=== PATIENT | male | born 1955 | race Hispanic/Latino ===

== ENCOUNTER 2020-04-22 11:07 | Inpatient (IN) | payer OTHER ==
[~2020-04-22] VITALS: Ht 172.7 cm; Wt 79.8 kg
[2020-04-22] MEDS ORDERED: ONDANSETRON HCL 4 MG/2 ML VIAL ONE (11:47)
[2020-04-22] MEDS ORDERED: MORPHINE SULFATE 4 MG/1ML SYG ONE (11:47)
[2020-04-22 12:15] LABS: BASOPHILS % (AUTO) 0.2 % (0.0-5.0); EOSINOPHILS % (AUTO) 1.1 % (0.0-8.0); HEMATOCRIT 44.6 % (42-54); LYMPHOCYTES % (AUTO) 34.1 % (21.0-51.0); MEAN CORPUSCULAR HEMOGLOBIN 31.8 pg (27.0-33.0); MONOCYTES % (AUTO) 8.2 % (3.0-13.0); NEUTROPHILS % (AUTO) 56.2 % (40.0-77.0); PLATELET COUNT (AUTO) 162 K/uL (130-400); RED CELL DISTRIBUTION WIDTH 11.7 % (11.0-15.5); WHITE BLOOD COUNT (AUTO) 5.3 K/uL (4.8-10.8)
[2020-04-22 12:36] LABS: ALBUMIN 3.2 g/dL (3.5-5.0); BILIRUBIN,TOTAL 0.9 mg/dL (0.2-1.0); CREATININE 0.8 mg/dL (0.5-1.5); TOTAL PROTEIN, SERUM 7.8 g/dL (6.0-8.3)
[2020-04-22 14:53] LABS: APPEARANCE,URINE Clear (CLEAR); BILIRUBIN,URINE Negative (NEGATIVE); COLOR,URINE Yellow (YELLOW); GLUCOSE, URINE (UA) Negative (NEGATIVE); KETONES,URINE Negative (NEGATIVE); LEUKOCYTE ESTERASE ,URINE Negative (NEGATIVE); NITRATE,URINE Negative (NEGATIVE); OCCULT BLOOD,URINE Negative (NEGATIVE); PROTEIN,URINE Trace mg/dL (NEGATIVE)
[2020-04-22] MEDS ORDERED: DEXAMETHASONE SOD PHOSPHATE 10MG/ML 1ML VIAL ONE (15:02)
[2020-04-22] MEDS ORDERED: AZITHROMYCIN 500MG+NS 250ML 250 ML IV ONE (15:03)
[2020-04-22] MEDS ORDERED: CEFTRIAXONE SODIUM 1 GM ONE (15:03)
[2020-04-22 15:18] LABS: BACTERIA,URINE Rare /HPF (None Seen); RBC,URINE 0-1 /HPF (0-1); SQUAMOUS EPITHELIAL CELL,UR Rare /HPF (0-2); WBC,URINE 0-1 /HPF (0-1)
[2020-04-22 15:38] LABS: ABG BASE EXCESS 1.1 mmol/L (-2.0-3.0); ABG HCO3 26.2 mmol/L (21.0-28.0); ABG OXYGEN SATURATION 89.9 % (95.0-99.0); ABG PCO2 43 mmHg (35-48)
[2020-04-22] MEDS ORDERED: ACETAMINOPHEN EXTRA STRENGTH 500 MG TABLET ONE (16:04)
[2020-04-22] MEDS: CEFTRIAXONE SODIUM 1 GM IV SCH (17:45)
[2020-04-22] MEDS: DOXYCYCLINE 100MG+NS 250ML 250 ML IV SCH (17:45)
[2020-04-22] MEDS ORDERED: ALBUTEROL SULFATE 0.083% 2.5 MG/3 ML INH IH PRN (17:45)
[2020-04-22] MEDS: AZITHROMYCIN 500MG+NS 250ML 250 ML IV SCH (17:45)
[2020-04-22] MEDS: FAMOTIDINE 20MG TAB 20 MG TAB PO SCH (21:00)
[2020-04-22] MEDS: METHYLPREDNISOLONE SOD SUCC 40MG/ML 1ML IVP SCH (21:00)
[2020-04-22] MEDS ORDERED: METHYLPREDNISOLONE SOD SUCC 40MG/ML 1ML ONE (23:15)
[2020-04-22] MEDS ORDERED: ENOXAPARIN SODIUM 40 MG/0.4 ML SYRINGE SQ ONE (23:15)
[2020-04-22] MEDS ORDERED: DOXYCYCLINE 100MG+NS 250ML 250 ML IV ONE (23:15)
[2020-04-22] MEDS ORDERED: FAMOTIDINE/PF 20 MG/2 ML VIAL IV ONE (23:16)
[2020-04-23] MEDS: DOXYCYCLINE 100MG+NS 250ML 250 ML IV SCH ×2 (05:45→17:45)
[2020-04-23 08:36] LABS: ALANINE AMINOTRANSFERASE 48 U/L (12-78); ALBUMIN 2.7 g/dL (3.5-5.0); ASPARTATE AMINOTRANSFERASE 36 U/L (10-37); BILIRUBIN,TOTAL 1.6 mg/dL (0.2-1.0); CARBON DIOXIDE 19 mmol/L (21-32); CHLORIDE 106 mmol/L (101-111); GLOMERULAR FILTR. RATE CALC 80 mL/min (>60); GLUCOSE,RANDOM 112 mg/dL (70-105); SODIUM SERUM 136 mmol/L (136-145); TOTAL PROTEIN, SERUM 5.7 g/dL (6.0-8.3); UREA NITROGEN, BLOOD 22 mg/dL (7-18)
[2020-04-23] MEDS: ENOXAPARIN SODIUM 40 MG/0.4 ML SYRINGE SQ SCH (09:00)
[2020-04-23] MEDS: FAMOTIDINE 20MG TAB 20 MG TAB PO SCH ×2 (09:00→21:00)
[2020-04-23] MEDS: METHYLPREDNISOLONE SOD SUCC 40MG/ML 1ML IVP SCH ×3 (09:00→21:00)
[2020-04-23 09:13] LABS: HEMATOCRIT 43.2 % (42-54); LYMPHOCYTES % (AUTO) 27.7 % (21.0-51.0); MEAN CORPUSCULAR HEMOGLOBIN 31.9 pg (27.0-33.0); MEAN CORPUSCULAR HGB CONC 34.7 g/dL (32.0-36.0); MEAN CORPUSCULAR VOLUME 91.9 fL (79-99); MONOCYTES % (AUTO) 5.7 % (3.0-13.0); NEUTROPHILS % (AUTO) 66.3 % (40.0-77.0); PLATELET COUNT (AUTO) 169 K/uL (130-400); RED CELL DISTRIBUTION WIDTH 11.6 % (11.0-15.5); WHITE BLOOD COUNT (AUTO) 3.7 K/uL (4.8-10.8)
[2020-04-23] MEDS ORDERED: ENOXAPARIN SODIUM 100 MG/1 ML SQ ONE (11:38)
[2020-04-23] MEDS ORDERED: ASPIRIN 325 MG TABLET ONE (11:39)
[2020-04-23] MEDS ORDERED: ZINC SULFATE 220 CAPSULE ONE (11:39)
[2020-04-23] MEDS ORDERED: ASCORBIC ACID 500 MG TAB ONE (11:39)
[2020-04-23] MEDS ORDERED: METHYLPREDNISOLONE SOD SUCC 40MG/ML 1ML ONE ×3 (11:39→21:31)
[2020-04-23] MEDS ORDERED: CEFTRIAXONE SODIUM 1 GM ONE ×2 (11:40→16:11)
[2020-04-23] MEDS ORDERED: FAMOTIDINE/PF 20 MG/2 ML VIAL IV ONE (11:40)
[2020-04-23] MEDS ORDERED: INSULIN HUMULIN R 100 UNIT/ML 3ML ONE ×2 (11:41→18:57)
--- NOTE | 2020-04-23 13:52 | NUR ---
CHART CHECK COMPLETED. Pt IS A 64 YEAR OLD MALE ADMITTED SECONDARY TO COVID-PNEUMONIA, ABDOMINAL PAIN, HYPOXEMIA. Pt DENIES SIGNIFICANT PAST MEDICAL HISTORY. Pt CURRENTLY ON REGULAR TEXTURE, THIN LIQUID DIET. SKILLED SPEECH/SWALLOW THERAPY IS NOT WARRANTED AT THIS TIME. Addendum: 04/23/20 at 1408 by AUGIE LIZ, [facility] Amended: Links added.
--- NOTE | 2020-04-23 14:03 | NUR ---
CALL TO PATIENT, NO ANSWER, CALL TO SPOUSE, [employer], [facility] HAS DROPPED OFF LABELLED DISTRICT ATTORNEY/PHONE TO SECURITY LAST NIGHT. [facility] PATIENT LIVES WITH SPOUSE AND SON, [facility]SE WILL PROVIDE TRANSPORT AT DISCHARGE. [facility] PATIENT IS ACTIVE, INDEPENDENT, EMPLOYED, DRIVES, NO DME OR HOME SERVICES DENIES SICK CONTACTS I THE HOME DCP IS HOME, CM TO FOLLOW Addendum: 04/23/20 at 1406 by ADDISON NELSON RN CM Amended: Links added.
[2020-04-23] MEDS ORDERED: FAMOTIDINE 20MG TAB 20 MG TAB ONE (16:10)
[2020-04-23] MEDS ORDERED: AZITHROMYCIN 500MG+NS 250ML 250 ML IV ONE (16:11)
[2020-04-23] MEDS: AZITHROMYCIN 500MG+NS 250ML 250 ML IV SCH (17:45)
[2020-04-23] MEDS: CEFTRIAXONE SODIUM 1 GM IV SCH (17:45)
[2020-04-23] MEDS ORDERED: DOXYCYCLINE 100MG+NS 250ML 250 ML IV ONE (21:31)
[2020-04-24] VITALS: BP 125/88
[2020-04-24 03:20] VITALS: BP 126/76
--- NOTE | 2020-04-24 03:21 | NUR ---
FULL REPORT GIVEN TO FLOOR NURSE PT DENIES SOB.DENIES CHEST PAIN
--- NOTE | 2020-04-24 05:21 | NUR ---
Pt presented A&Ox4 and is cooperative and pleasant to talk to; pts mood is appropriate; pt stated he had BM two days ago; pt oriented to room, bed, call toribio; pt verbalized understanding; pt provided water as requested; pt denies any requests and/or complaints at this time; pts respirations are even and unlabored ; pt O2 sats remain at 93% on RA; no distress noted; will continue to monitor throughout remainder of shift Addendum: 04/24/20 at 4110 by Arsenio Garnica RN RN Amended: Links added.
[2020-04-24 08:03] LABS: ALANINE AMINOTRANSFERASE 45 U/L (12-78); ALBUMIN 2.8 g/dL (3.5-5.0); ASPARTATE AMINOTRANSFERASE 35 U/L (10-37); BILIRUBIN,TOTAL 0.6 mg/dL (0.2-1.0); CARBON DIOXIDE 30 mmol/L (21-32); CHLORIDE 101 mmol/L (101-111); GLOMERULAR FILTR. RATE CALC 80 mL/min (>60); GLUCOSE,RANDOM 239 mg/dL (70-105); POTASSIUM 3.9 mmol/L (3.5-5.1); SODIUM SERUM 139 mmol/L (136-145); TOTAL PROTEIN, SERUM 7.1 g/dL (6.0-8.3); UREA NITROGEN, BLOOD 13 mg/dL (7-18)
[2020-04-24] MEDS ORDERED: ACETAMINOPHEN 325 MG TAB PO PRN (08:30)
[2020-04-24] MEDS: METHYLPREDNISOLONE SOD SUCC 40MG/ML 1ML IVP SCH ×3 (08:42→21:58)
[2020-04-24] MEDS: ENOXAPARIN SODIUM 40 MG/0.4 ML SYRINGE SQ SCH ×2 (08:44→21:59)
[2020-04-24 08:54] VITALS: BP 102/48
[2020-04-24] MEDS ORDERED: GLUCAGON 1MG KIT 1 MG ML IM PRN (09:45)
[2020-04-24] MEDS ORDERED: DEXTROSE 50%-WATER 50 ML DISP.SYRIN IV PRN (09:45)
[2020-04-24 10:08] LABS: HEMOGLOBIN A1C 8.2 % (4.0-6.0)
[2020-04-24] MEDS: DOXYCYCLINE 100MG+NS 250ML 250 ML IV SCH ×2 (10:49→21:58)
[2020-04-24] MEDS: POLYETHYLENE GLYCOL 3350 17 GM POWD.PACK PO SCH (10:50)
[2020-04-24] MEDS: FAMOTIDINE/PF 20 MG/2 ML VIAL IV SCH ×2 (10:50→21:58)
[2020-04-24] MEDS: INSULIN HUMULIN R 100 UNIT/ML 3ML SQ SCH ×3 (10:53→22:02)
--- NOTE | 2020-04-24 11:00 | NUR ---
PHYSICIAN ROUNDS DR WILLIAM THOMAS ROUNDED ON PATIENT , PER HIS SERVICE NO PLASMA NEEDED , PATIENT ON ROOM AIR AND O2 SATS 93-95%. POSSIBLE DISCHARGE TOMORROW.
[2020-04-24 11:10] VITALS: BP 151/67
--- NOTE | 2020-04-24 12:00 | NUR ---
PHYSICIAN ROUNDS DR SHASTA VEGAS ROUNDED ON PATIENT , PATIENT ON ROOM AIR WITH O2 SATS 93-95%, NO NEW ORDERS RECEIVED WILL SING -OFF PATIENT PER HIS SERVICE
[2020-04-24 16:40] VITALS: BP 94/58
[2020-04-24] MEDS: AZITHROMYCIN 500MG+NS 250ML 250 ML IV SCH (16:42)
[2020-04-24] MEDS: CEFTRIAXONE SODIUM 1 GM IV SCH (16:43)
[2020-04-24 21:18] VITALS: BP 112/57
[2020-04-24] MEDS: INSULIN GLARGINE 100 UNITS/ML 10 ML VIAL SQ SCH (22:01)
[2020-04-25 00:21] VITALS: BP 123/67
[2020-04-25 03:27] VITALS: BP 123/61
[2020-04-25] MEDS: INSULIN HUMULIN R 100 UNIT/ML 3ML SQ SCH ×7 (06:30→22:50)
[2020-04-25] MEDS: INSULIN GLARGINE 100 UNITS/ML 10 ML VIAL SQ SCH ×2 (06:30→22:50)
[2020-04-25 06:39] LABS: BASOPHILS % (AUTO) 0.1 % (0.0-5.0); HEMATOCRIT 41.4 % (42-54); LYMPHOCYTES % (AUTO) 7.7 % (21.0-51.0); MEAN CORPUSCULAR HEMOGLOBIN 31.5 pg (27.0-33.0); MEAN CORPUSCULAR HGB CONC 34.3 g/dL (32.0-36.0); MEAN CORPUSCULAR VOLUME 91.8 fL (79-99); MONOCYTES % (AUTO) 4.1 % (3.0-13.0); NEUTROPHILS % (AUTO) 87.7 % (40.0-77.0); PLATELET COUNT (AUTO) 223 K/uL (130-400); RED BLOOD CELL COUNT(AUTO) 4.51 MIL/uL (4.50-6.20); RED CELL DISTRIBUTION WIDTH 11.6 % (11.0-15.5); WHITE BLOOD COUNT (AUTO) 13.6 K/uL (4.8-10.8)
[2020-04-25 06:56] LABS: ALANINE AMINOTRANSFERASE 41 U/L (12-78); ALBUMIN 2.5 g/dL (3.5-5.0); ASPARTATE AMINOTRANSFERASE 22 U/L (10-37); BILIRUBIN,TOTAL 0.6 mg/dL (0.2-1.0); CARBON DIOXIDE 29 mmol/L (21-32); CHLORIDE 101 mmol/L (101-111); CREATININE 0.9 mg/dL (0.5-1.5); GLOMERULAR FILTR. RATE CALC 90 mL/min (>60); GLUCOSE,RANDOM 210 mg/dL (70-105); POTASSIUM 4.5 mmol/L (3.5-5.1); SODIUM SERUM 137 mmol/L (136-145); TOTAL PROTEIN, SERUM 6.8 g/dL (6.0-8.3); UREA NITROGEN, BLOOD 11 mg/dL (7-18)
[2020-04-25 08:43] VITALS: BP 137/70
[2020-04-25] MEDS: FAMOTIDINE/PF 20 MG/2 ML VIAL IV SCH ×2 (09:44→22:49)
[2020-04-25] MEDS: POLYETHYLENE GLYCOL 3350 17 GM POWD.PACK PO SCH (09:44)
[2020-04-25] MEDS: DOXYCYCLINE 100MG+NS 250ML 250 ML IV SCH (09:44)
[2020-04-25] MEDS: ENOXAPARIN SODIUM 40 MG/0.4 ML SYRINGE SQ SCH ×2 (09:44→22:49)
[2020-04-25] MEDS: METHYLPREDNISOLONE SOD SUCC 40MG/ML 1ML IVP SCH ×3 (09:44→22:49)
[2020-04-25 11:12] VITALS: BP 124/69
[2020-04-25 16:57] VITALS: BP 103/62
[2020-04-25] MEDS: CEFTRIAXONE SODIUM 1 GM IV SCH (17:21)
[2020-04-25] MEDS: AZITHROMYCIN 500MG+NS 250ML 250 ML IV SCH (17:21)
[2020-04-25 19:30] VITALS: BP 136/75
[2020-04-26] VITALS: BP 142/75
[2020-04-26 04:00] VITALS: BP 130/62
[2020-04-26] MEDS: INSULIN HUMULIN R 100 UNIT/ML 3ML SQ SCH ×7 (06:35→21:00)
[2020-04-26] MEDS: INSULIN GLARGINE 100 UNITS/ML 10 ML VIAL SQ SCH ×2 (06:40→21:00)
[2020-04-26 08:00] VITALS: BP 123/67
[2020-04-26] MEDS: FAMOTIDINE/PF 20 MG/2 ML VIAL IV SCH ×2 (09:33→21:59)
[2020-04-26] MEDS: POLYETHYLENE GLYCOL 3350 17 GM POWD.PACK PO SCH (09:33)
[2020-04-26] MEDS: METHYLPREDNISOLONE SOD SUCC 40MG/ML 1ML IVP SCH ×3 (09:33→21:59)
[2020-04-26] MEDS: ENOXAPARIN SODIUM 40 MG/0.4 ML SYRINGE SQ SCH ×2 (09:34→22:00)
[2020-04-26 11:00] VITALS: BP 122/71
--- NOTE | 2020-04-26 14:52 | NUR ---
PT OFF THE O2 VIA NG AT 2.5 LITER . FOR WEANING DOWN . AND WILL CHECK HIS O2 SAT IN 30 MIN... PER DR. SUSI IRVIN PLAN OF CARE. POSSIBLE DISCHARGE . IF PT TOLERATE WEANING OFF THE OXYGEN .
[2020-04-26 16:00] VITALS: BP 135/74
--- NOTE | 2020-04-26 16:20 | NUR ---
RECHECK O2 AT ROOM AIR. PT . SAT WERE MONITOR .AT 86% . TOOK PT SOME DEEP BREATH . TO BRING HIS O2 SAT UP TO 91% . PLACED ON 1 LITER NC
[2020-04-26] MEDS: AZITHROMYCIN 500MG+NS 250ML 250 ML IV SCH (16:56)
[2020-04-26] MEDS: CEFTRIAXONE SODIUM 1 GM IV SCH (16:56)
[2020-04-26] MEDS: METFORMIN HCL 500 MG TABLET PO SCH (17:43)
[2020-04-26] MEDS ORDERED: AZITHROMYCIN 500MG+NS 250ML 250 ML IV SCH (21:00)
[2020-04-26 22:23] VITALS: BP 160/92
[2020-04-27 00:05] VITALS: BP 159/87
[2020-04-27 05:59] VITALS: BP 150/80
[2020-04-27] MEDS: INSULIN HUMULIN R 100 UNIT/ML 3ML SQ SCH ×7 (06:28→21:00)
[2020-04-27] MEDS: INSULIN GLARGINE 100 UNITS/ML 10 ML VIAL SQ SCH ×2 (06:29→21:00)
[2020-04-27 08:35] VITALS: BP 129/73
[2020-04-27] MEDS: METHYLPREDNISOLONE SOD SUCC 40MG/ML 1ML IVP SCH ×3 (09:00→21:00)
[2020-04-27] MEDS: FAMOTIDINE/PF 20 MG/2 ML VIAL IV SCH ×2 (09:00→21:00)
[2020-04-27] MEDS: ENOXAPARIN SODIUM 40 MG/0.4 ML SYRINGE SQ SCH ×2 (09:01→21:00)
[2020-04-27] MEDS: METFORMIN HCL 500 MG TABLET PO SCH ×3 (09:01→18:04)
[2020-04-27] MEDS: POLYETHYLENE GLYCOL 3350 17 GM POWD.PACK PO SCH (09:01)
[2020-04-27 12:01] VITALS: BP 144/94
[2020-04-27 16:55] VITALS: BP 155/79
[2020-04-27] MEDS: AZITHROMYCIN 500MG+NS 250ML 250 ML IV SCH (18:04)
[2020-04-27] MEDS: CEFTRIAXONE SODIUM 1 GM IV SCH (18:05)
[2020-04-27] MEDS: GLIPIZIDE 5 MG TABLET PO SCH (18:08)
[2020-04-27 20:54] VITALS: BP 163/91
[2020-04-28 01:52] VITALS: BP 148/81
[2020-04-28 05:00] VITALS: BP 141/90
[2020-04-28] MEDS: INSULIN HUMULIN R 100 UNIT/ML 3ML SQ SCH ×7 (06:06→22:04)
[2020-04-28] MEDS: INSULIN GLARGINE 100 UNITS/ML 10 ML VIAL SQ SCH ×2 (06:37→22:04)
[2020-04-28] MEDS: GLIPIZIDE 5 MG TABLET PO SCH (06:38)
--- NOTE | 2020-04-28 08:00 | NUR ---
PT AAO X 3 REVIEW PLAN OFCARE, PT WAS PLACED BACK ON THE O2 VIA NC DUETO A DROP OF O2 SAT DOWN TO 86% 88% . WILL CONT TO MONITOR HIS O2 SAT . ON 2 LITER NC. DENIES ANY SOB ONLY IF HE STARTS TO WALK FAST OR FOR A LONG TIME. REVIEW CALL LIGHT AND FALL RISK ,
[2020-04-28] MEDS: METFORMIN HCL 500 MG TABLET PO SCH ×3 (08:19→16:51)
[2020-04-28] MEDS: FAMOTIDINE/PF 20 MG/2 ML VIAL IV SCH ×2 (08:20→21:59)
[2020-04-28] MEDS: ENOXAPARIN SODIUM 40 MG/0.4 ML SYRINGE SQ SCH ×2 (08:21→22:05)
[2020-04-28] MEDS: METHYLPREDNISOLONE SOD SUCC 40MG/ML 1ML IVP SCH ×3 (08:22→21:59)
[2020-04-28] MEDS: POLYETHYLENE GLYCOL 3350 17 GM POWD.PACK PO SCH (08:23)
[2020-04-28 09:43] VITALS: BP 114/67
[2020-04-28 09:46] LABS: BASOPHILS % (AUTO) 0.1 % (0.0-5.0); LYMPHOCYTES % (AUTO) 10.7 % (21.0-51.0); MEAN CORPUSCULAR HEMOGLOBIN 31.4 pg (27.0-33.0); MEAN CORPUSCULAR HGB CONC 34.5 g/dL (32.0-36.0); MEAN CORPUSCULAR VOLUME 90.9 fL (79-99); MONOCYTES % (AUTO) 5.6 % (3.0-13.0); NEUTROPHILS % (AUTO) 82.4 % (40.0-77.0); PLATELET COUNT (AUTO) 286 K/uL (130-400); RED BLOOD CELL COUNT(AUTO) 4.62 MIL/uL (4.50-6.20); RED CELL DISTRIBUTION WIDTH 11.3 % (11.0-15.5)
[2020-04-28 10:04] LABS: ALANINE AMINOTRANSFERASE 44 U/L (12-78); ALBUMIN 2.4 g/dL (3.5-5.0); ASPARTATE AMINOTRANSFERASE 21 U/L (10-37); BILIRUBIN,TOTAL 0.6 mg/dL (0.2-1.0); CARBON DIOXIDE 30 mmol/L (21-32); CHLORIDE 99 mmol/L (101-111); CREATININE 0.9 mg/dL (0.5-1.5); GLOMERULAR FILTR. RATE CALC 90 mL/min (>60); GLUCOSE,RANDOM 302 mg/dL (70-105); LACTATE DEHYDROGENASE 256 U/L (81-234); POTASSIUM 3.9 mmol/L (3.5-5.1); SODIUM SERUM 135 mmol/L (136-145); TOTAL PROTEIN, SERUM 6.2 g/dL (6.0-8.3); UREA NITROGEN, BLOOD 18 mg/dL (7-18)
[2020-04-28 12:23] VITALS: BP 123/81
[2020-04-28] MEDS ORDERED: ALBUTEROL INHALER 90MCG/INH IH PRN (13:30)
--- NOTE | 2020-04-28 15:00 | NUR ---
Family notification Spoke to Manuela Azar and gave her an update regarding patient's condition. All questions were answered and concerns addressed. Mrs. Azar was very appreciative of call
--- NOTE | 2020-04-28 15:06 | NUR ---
RESP STAFF WITH PT. . TO SEE PT O2 SAT AFTER GETTING UP AND WALKING FOR EVAL FOR OXYGEN
--- NOTE | 2020-04-28 15:30 | NUR ---
PER RESULTS FROM THE AMBULATORY ON ROOM AIR, PT OXYGEN LEVEL DOWN TO 88% AND PLACED BACK ON 2 LITER NC. WILL DIRECT RESULTS TO CASE MANGEMENT STAFF FOR DIRECTIONS OF CONT . DISCHARGE PLANNING CARE.
--- NOTE | 2020-04-28 15:59 | NUR ---
Family notification Addendum from 04/27/2020; Spoke to Manuela Azar to give her an update on pt's condition. All questions were answered and concerns addressed. Verbalized understanding and was very appreciative of call
[2020-04-28] MEDS: CEFTRIAXONE SODIUM 1 GM IV SCH (16:03)
[2020-04-28] MEDS: AZITHROMYCIN 500MG+NS 250ML 250 ML IV SCH (16:51)
[2020-04-28 17:39] VITALS: BP_SYST 123; BP_SYST 141; BP_DIAS 76; BP_DIAS 87
[2020-04-28 23:01] VITALS: BP 150/91
[2020-04-29 01:05] VITALS: BP 123/80
[2020-04-29] MEDS: INSULIN HUMULIN R 100 UNIT/ML 3ML SQ SCH ×7 (05:33→21:47)
[2020-04-29 05:54] VITALS: BP 156/96
[2020-04-29] MEDS: GLIPIZIDE 5 MG TABLET PO SCH (06:09)
[2020-04-29] MEDS: INSULIN GLARGINE 100 UNITS/ML 10 ML VIAL SQ SCH ×2 (06:11→21:48)
[2020-04-29 07:19] LABS: BASOPHILS % (AUTO) 0.1 % (0.0-5.0); HEMATOCRIT 44.1 % (42-54); LYMPHOCYTES % (AUTO) 15.7 % (21.0-51.0); MEAN CORPUSCULAR HEMOGLOBIN 31.5 pg (27.0-33.0); MEAN CORPUSCULAR HGB CONC 34.7 g/dL (32.0-36.0); MEAN CORPUSCULAR VOLUME 90.7 fL (79-99); NEUTROPHILS % (AUTO) 75.6 % (40.0-77.0); PLATELET COUNT (AUTO) 332 K/uL (130-400); RED BLOOD CELL COUNT(AUTO) 4.86 MIL/uL (4.50-6.20); RED CELL DISTRIBUTION WIDTH 11.4 % (11.0-15.5); WHITE BLOOD COUNT (AUTO) 7.6 K/uL (4.8-10.8)
[2020-04-29 08:00] VITALS: BP 99/59
[2020-04-29 08:01] LABS: CREATININE 0.8 mg/dL (0.5-1.5); CRP QUANTITATIVE 20.2 mg/L (0.00-9.0); POTASSIUM 4.4 mmol/L (3.5-5.1)
[2020-04-29] MEDS: METFORMIN HCL 500 MG TABLET PO SCH ×3 (09:40→18:26)
[2020-04-29] MEDS: METHYLPREDNISOLONE SOD SUCC 40MG/ML 1ML IVP SCH ×2 (09:40→13:40)
[2020-04-29] MEDS: FAMOTIDINE/PF 20 MG/2 ML VIAL IV SCH ×2 (09:40→21:42)
[2020-04-29] MEDS: POLYETHYLENE GLYCOL 3350 17 GM POWD.PACK PO SCH (09:40)
[2020-04-29] MEDS: ENOXAPARIN SODIUM 40 MG/0.4 ML SYRINGE SQ SCH ×2 (09:41→21:42)
[2020-04-29 12:00] VITALS: BP 111/69
--- NOTE | 2020-04-29 13:52 | NUR ---
RDSCREEN - LOS X 7 Pt with positive COVID-19. Tolerated Heart Healthy Diet order with no report of GI distress, PO intake at 100%. Obesity Class III (BMI 42.4). Miralax in place. Recommend 60mL ProMod QD RD to continue to monitor. Please notify as additional nutrition concerns arise. Thank you.
[2020-04-29 16:00] VITALS: BP 125/72
--- NOTE | 2020-04-29 16:06 | NUR ---
CM NOTE/[facility] CALLED [facility], STATES THEY HAVE OXYGEN BUT HAVE A WAITING LIST. PREVIOUSLY ALL OTHER DME COMPANIES IN NETWORK DO NOT HAVE OXYGEN. CLINICAL REFERRAL PACKET FAXED TO [facility]. CM TO FOLLOW UP ACCORDINGLY. DR. FAJARDO AWARE OF POSSIBLE DELAY IN HOME OXYGEN DUE TO HIGH DEMAND AND WAITING LIST. PATIENT IS TO BE WEANED OFF OXYGEN IN THE MEAN TIME.
[2020-04-29] MEDS: AZITHROMYCIN 500MG+NS 250ML 250 ML IV SCH (18:26)
[2020-04-29] MEDS: CEFTRIAXONE SODIUM 1 GM IV SCH (18:26)
[2020-04-29] MEDS: DEXAMETHASONE 4 MG TAB PO SCH (21:42)
[2020-04-29 21:54] VITALS: BP 108/75
[2020-04-30 02:02] VITALS: BP 139/83
--- NOTE | 2020-04-30 02:33 | NUR ---
pt maintained 94% O2 sats on room air. REJI West Addendum: 04/30/20 at 0308 by Arsenio Garnica RN RN pts O2 sats dropped to 88% at this time while asleep; pt was awakened and instructed to take deep slow breaths and O2 sats increased to 90% pt placed on 1L O2 via nasal cannula at this time. RE[facility]
[2020-04-30 06:04] LABS: BASOPHILS % (AUTO) 0.3 % (0.0-5.0); HEMATOCRIT 43.3 % (42-54); LYMPHOCYTES % (AUTO) 13.7 % (21.0-51.0); MEAN CORPUSCULAR HEMOGLOBIN 32.1 pg (27.0-33.0); MEAN CORPUSCULAR HGB CONC 35.1 g/dL (32.0-36.0); MEAN CORPUSCULAR VOLUME 91.4 fL (79-99); MONOCYTES % (AUTO) 6.6 % (3.0-13.0); NEUTROPHILS % (AUTO) 77.7 % (40.0-77.0); PLATELET COUNT (AUTO) 313 K/uL (130-400); RED BLOOD CELL COUNT(AUTO) 4.74 MIL/uL (4.50-6.20); RED CELL DISTRIBUTION WIDTH 11.4 % (11.0-15.5); WHITE BLOOD COUNT (AUTO) 7.7 K/uL (4.8-10.8)
[2020-04-30] MEDS: INSULIN HUMULIN R 100 UNIT/ML 3ML SQ SCH ×7 (06:11→21:44)
[2020-04-30] MEDS: GLIPIZIDE 5 MG TABLET PO SCH (06:26)
[2020-04-30] MEDS: INSULIN GLARGINE 100 UNITS/ML 10 ML VIAL SQ SCH ×2 (06:27→21:44)
[2020-04-30 06:32] LABS: CARBON DIOXIDE 29 mmol/L (21-32); CHLORIDE 101 mmol/L (101-111); CREATININE 0.8 mg/dL (0.5-1.5); GLOMERULAR FILTR. RATE CALC 103 mL/min (>60); GLUCOSE,RANDOM 172 mg/dL (70-105); LACTATE DEHYDROGENASE 236 U/L (81-234); POTASSIUM 4.5 mmol/L (3.5-5.1); SODIUM SERUM 135 mmol/L (136-145); UREA NITROGEN, BLOOD 15 mg/dL (7-18)
[2020-04-30 06:34] VITALS: BP 150/80
[2020-04-30 08:30] VITALS: BP 99/53
--- NOTE | 2020-04-30 09:00 | NUR ---
PATIENT CURRENTLY ON O2 1LPM VIA NC, O2 SAT 94%, PLACED ON ROOM AIR PATIENT 02 SAT MAINTAINED AT 90%. PATIENT DENIES SHORTNESS OF BREATH. WILL CONTINUE TO MONITOR
[2020-04-30] MEDS: POLYETHYLENE GLYCOL 3350 17 GM POWD.PACK PO SCH (09:13)
[2020-04-30] MEDS: FAMOTIDINE/PF 20 MG/2 ML VIAL IV SCH ×2 (09:13→21:40)
[2020-04-30] MEDS: METFORMIN HCL 500 MG TABLET PO SCH ×3 (09:13→16:15)
[2020-04-30] MEDS: ENOXAPARIN SODIUM 40 MG/0.4 ML SYRINGE SQ SCH ×2 (09:14→21:41)
[2020-04-30] MEDS: DEXAMETHASONE 4 MG TAB PO SCH ×2 (09:14→21:40)
[2020-04-30 11:00] VITALS: BP 118/85
--- NOTE | 2020-04-30 11:00 | NUR ---
PATIENT AMBULATED TO RESTROOM, PATIENT REPORTS FEELING SHORT OF BREATH. O2 SAT DROPPED TO 85%, PLACED BACK ON O2 1LPM, O2 SAT IMPROVED TO 92%, WILL CONTINUE MONITOR.
[2020-04-30] MEDS ORDERED: FUROSEMIDE 10 MG/ML 2ML VIAL IV SCH (15:05)
[2020-04-30 15:32] VITALS: BP 96/64
[2020-04-30] MEDS: AZITHROMYCIN 500MG+NS 250ML 250 ML IV SCH (16:14)
[2020-04-30] MEDS: CEFTRIAXONE SODIUM 1 GM IV SCH (16:29)
[2020-04-30 21:15] VITALS: BP 104/66
[2020-05-01 00:34] VITALS: BP 102/57
[2020-05-01 06:00] LABS: BASOPHILS % (AUTO) 0.1 % (0.0-5.0); HEMATOCRIT 44.2 % (42-54); LYMPHOCYTES % (AUTO) 13.4 % (21.0-51.0); MEAN CORPUSCULAR HEMOGLOBIN 31.6 pg (27.0-33.0); MEAN CORPUSCULAR HGB CONC 34.8 g/dL (32.0-36.0); MEAN CORPUSCULAR VOLUME 90.8 fL (79-99); NEUTROPHILS % (AUTO) 78.7 % (40.0-77.0); PLATELET COUNT (AUTO) 307 K/uL (130-400); RED BLOOD CELL COUNT(AUTO) 4.87 MIL/uL (4.50-6.20); RED CELL DISTRIBUTION WIDTH 11.6 % (11.0-15.5); WHITE BLOOD COUNT (AUTO) 8.4 K/uL (4.8-10.8)
[2020-05-01] MEDS: INSULIN HUMULIN R 100 UNIT/ML 3ML SQ SCH ×4 (06:13→11:51)
[2020-05-01] MEDS: GLIPIZIDE 5 MG TABLET PO SCH (06:13)
[2020-05-01] MEDS: INSULIN GLARGINE 100 UNITS/ML 10 ML VIAL SQ SCH (06:14)
[2020-05-01 06:23] LABS: CARBON DIOXIDE 30 mmol/L (21-32); CHLORIDE 99 mmol/L (101-111); CREATININE 0.8 mg/dL (0.5-1.5); GLOMERULAR FILTR. RATE CALC 103 mL/min (>60); GLUCOSE,RANDOM 149 mg/dL (70-105); LACTATE DEHYDROGENASE 217 U/L (81-234); POTASSIUM 4.4 mmol/L (3.5-5.1); SODIUM SERUM 134 mmol/L (136-145); UREA NITROGEN, BLOOD 18 mg/dL (7-18)
[2020-05-01 06:28] VITALS: BP 134/72
[2020-05-01 07:30] VITALS: BP_SYST 109; BP_SYST 124; BP_DIAS 52; BP_DIAS 73
--- NOTE | 2020-05-01 08:00 | NUR ---
SITTING IN CHAIR, DENIES ANY SOB OR COUGH AT THIS TIME.
[2020-05-01] MEDS: FAMOTIDINE/PF 20 MG/2 ML VIAL IV SCH (09:24)
[2020-05-01] MEDS: POLYETHYLENE GLYCOL 3350 17 GM POWD.PACK PO SCH (09:25)
[2020-05-01] MEDS: DEXAMETHASONE 4 MG TAB PO SCH (09:25)
[2020-05-01] MEDS: ENOXAPARIN SODIUM 40 MG/0.4 ML SYRINGE SQ SCH (09:27)
[2020-05-01] MEDS: METFORMIN HCL 500 MG TABLET PO SCH ×2 (09:41→12:03)
[2020-05-01 11:00] VITALS: BP_SYST 123; BP_SYST 127; BP_DIAS 74; BP_DIAS 78
--- NOTE | 2020-05-01 11:14 | NUR ---
DR. FAJARDO IN TO SEE PT. PLAN TO DISCHARGE TODAY IF HOME 02 ARRANGEMENTS COMPLETE.
--- NOTE | 2020-05-01 11:53 | NUR ---
CM NOTE/[facility] PER JULIA AT [facility], O2 PROCESSED AND TO BE DELIVERED TODAY IF PATIENT ACCEPTS [employer]AY COST. DR. FAJARDO AWARE, POSSIBLE DC HOME TODAY.
--- NOTE | 2020-05-01 14:21 | NUR ---
SPOKE TO [facility] AND 02 HAS NOT YET BEEN DELIVERED.PT, GETTING ANXIOUS TO HOME.
--- NOTE | 2020-05-01 17:30 | NUR ---
DISCHARGED NOW USING TEACH BACK, VERBALIZED UNDERSTANDING OF ALL INST. GIVEN, RX. GIVEN AND ALL MEDICATIONS EXPLAINED. SALINE LOCK REMOVED. WILL CONTINUE TO FOLLOW CDC GUIDELINES. INST. TO RETURN TO ER IF DEVELOPS FEVER OR COUGH, SORE THROAT.WILL FOLLOW UP WITH PCP IN 10 TO 14 DAYS.
--- NOTE | 2020-05-01 17:30 | NUR ---
DISCHARGED NOW USING TEACH BACK. VERBALIZESDERSTANDING OF ALL INST. GIVEN
== END 2020-05-01 18:00 | disposition home or self-care (01) | DRG 177 ==
LOC: EDH 11:07 → EDHIP 16:20 → 4CH 04-24 03:20
PROVIDERS: ADMIT Family Medicine; ATTEND Family Medicine
DX: U07.1 COVID-19 (principal); J96.01 Acute respiratory failure with hypoxia; J12.89 Other viral pneumonia; E66.01 Morbid (severe) obesity due to excess calories; I10 Essential (primary) hypertension; Z68.26 Body mass index [BMI] 26.0-26.9, adult; E11.9 Type 2 diabetes mellitus without complications; R53.81 Other malaise
CPT/HCPCS: 0099U; 36415; 36600; 71045; 74176; 80048; 80053; 81001; 82550; 82728; 82803; 82948; 83036; 83605; 83615; 83690; 84145; 84484; 85025; 85378; 86140; 86900; 86901; 87040; 87071; 87205; 87486; 87581; 87633; 87798; 87804; 93005; 94664; 94760; 99291; G0378; J0456; J0696; J1100; J1650; J1815; J1940; J2270; J2405; J2920; J3490; J8540; U0003